=== PATIENT | male | born 1980 | race Caucasian/White ===

== ENCOUNTER 2017-03-06 20:14 | Emergency (ER) | payer OTHER ==
[2017-03-06 20:22] VITALS: BP 132/90; PULSE 78; RESP 14; TEMP 98.2; O2SAT 95
[2017-03-06] MEDS ORDERED: TDAP ADULT 0.5 ML INJ (BOOSTRIX) IM ONE (20:23)
[2017-03-06] MEDS ORDERED: SKIN ADHESIVE (DERMABOND) 1 EACH TP ONE ×2 (20:43)
--- NOTE | 2017-03-06 20:43 | EDPHY ---
H & P Time Seen by Provider: 03/06/17 20:25 HPI/ROS: 36-year-old male presents complaining handle of a saw dropped onto his nose, no loss of consciousness no nose bleeding, laceration to bridge of nose with a small amount of bleeding. He also complains of a rash around his lips that he has had for approximately 1 month. Review of systems As per HPI General no fever no chills no weakness HEENT no eye pain no eye discharge. No eye redness, no sore throat Respiratory no cough, no shortness of breath Cardiac no chest pain, no peripheral edema GI no abdominal pain, no diarrhea, no constipation, no nausea, no vomiting no flank pain, no hematuria, no dysuria Musculoskeletal no myalgias, no joint pain Heme no easy bruising, no easy bleeding Endo no polyuria, no polydipsia Skin positive rashes, no pruritus Neuro no syncope, no dizziness, no headaches Psych is no suicidal ideation, no homicidal ideation Past Medical/Surgical History: Noncontributory Social History: Alcohol socially, no excessive drug use Smoking Status: Never smoked Physical Exam: 36-year-old male Alert and oriented in no acute distress nontoxic appearance, afebrile normocephalic Superficial irregular laceration across nose bridge 2 cm, no gaping no septal swelling, no blood in nares Erythema, no pustules no vesicles no drainage no crusting perioral, no swelling Neck no JVD Lungs clear to auscultation, no respiratory distress Heart regular rate and rhythm Extremities no cyanosis clubbing edema Constitutional: Initial Vital Signs Temperature (C) 36.8 C 03/06/17 20:18 Heart Rate 78 03/06/17 20:18 Respiratory Rate 14 03/06/17 20:18 Blood Pressure 132/90 H 03/06/17 20:18 O2 Sat (%) 95 03/06/17 20:18 O2 Delivery Mode Room Air Allergies/Adverse Reactions: Penicillins Allergy (Verified 03/06/17 20:22) Medical Decision Making ED Course/Re-evaluation: pt seen and evaluated for nasal laceration and rash around his mouth. Differential diagnosis considered Nasal laceration, nasal fracture Perioral eczema, viral exanthem Impression/plan 1. Superficial nasal laceration repaired with Dermabond 2. Rash consistent with eczema Recommend trying use ran combined with hydrocortisone Given Dermatology referral - Data Points Medications Given: Discontinued Medications Diphtheria/Tetanus/Acell Pertussis (Boostrix) 0.5 ml IM .ONCE ONE Stop: 03/06/17 20:24 Last Admin: 03/06/17 20:31 Dose: 0.5 ml Octyl Cyanoacrylate (Dermabond) 1 each TP EDNOW ONE Stop: 03/06/17 20:44 Last Admin: 03/06/17 20:56 Dose: 1 each Departure - Departure Disposition: Home, Routine, Self-Care Clinical Impression: Laceration of nose, Eczema Condition: Good Instructions: Eczema (ED), Skin Adhesive Care (ED), Facial Laceration (ED) Additional Instructions: Try some hydrocortisone cream or ointment on the rash around your mouth You may also try a combination of Eucerin with hydrocortisone 1% Referrals: NONE *PRIMARY CARE P,. [Primary Care Provider] - As per Instructions [facility] [Provider Group] - As per Instructions Sumit Sands MD [Medical Doctor] - As per Instructions
== END 2017-03-06 21:07 | disposition home or self-care (01) ==
LOC: CED 20:14
PROC: 09QKXZZ Repair Nasal Mucosa and Soft Tissue, External Approach (ICD-10-PCS; principal; 2017-03-06)
PROC: 3E0234Z Introduction of Serum, Toxoid and Vaccine into Muscle, Percutaneous Approach (ICD-10-PCS; principal; 2017-03-06)
DX: S01.21XA Laceration without foreign body of nose, initial encounter (principal); L30.9 Dermatitis, unspecified; Z23 Encounter for immunization; W20.8XXA Other cause of strike by thrown, projected or falling object, initial encounter